=== PATIENT | male | born 1995 | race Caucasian/White ===

== ENCOUNTER 2017-03-31 15:06 | Emergency (ER) | payer OTHER ==
[2017-03-31 15:33] VITALS: BP 136/82
--- NOTE | 2017-03-31 15:48 | UC ---
UC General HPI - HPI Summary HPI Summary: pt is c/o headache, sore throat, bodyaches and chills since this past . no cough, sob, n/v/d, dysuria - History of Current Complaint Chief Complaint: UCGeneralIllness Stated Complaint: HEADACHE SORE THROAT ACHY Time Seen by Provider: 03/31/17 15:29 Hx Obtained From: Patient Onset/Duration: Gradual Onset Timing: Constant Onset Severity: Moderate Pain Intensity: 6 Associated Signs & Symptoms: Positive: Fever, Headache - Allergy/Home Medications Allergies/Adverse Reactions: Allergies Allergy/AdvReac Type Severity Reaction Status Date / Time No Known Allergies Allergy Verified 03/31/17 15:33 PMH/Surg Hx/FS Hx/Imm Hx Previously Healthy: Yes - Surgical History Surgical History: None - Family History Known Family History: Positive: None - Social History Alcohol Use: None Substance Use Type: None Smoking Status (MU): Never Smoked Tobacco Review of Systems Constitutional: Fever, Chills Skin: Other - pink spot on L shoulder area Eyes: Negative ENT: Sore Throat Respiratory: Negative Cardiovascular: Negative Gastrointestinal: Negative Genitourinary: Negative Motor: Negative Musculoskeletal: Myalgia Neurological: Headache Is Patient Immunocompromised?: No All Other Systems Reviewed And Are Negative: Yes Physical Exam Triage Information Reviewed: Yes Appearance: Well-Appearing Vital Signs: Initial Vital Signs Temp 99.1 F 03/31/17 15:29 Pulse 68 03/31/17 15:29 Resp 16 03/31/17 15:29 BP 136/82 03/31/17 15:29 Pulse Ox 100 03/31/17 15:29 Vital Signs Reviewed: Yes Eye Exam: Normal ENT: Positive: Pharyngeal erythema, TMs normal, Uvula midline. Negative: Nasal congestion, Nasal drainage, Tonsillar swelling, Tonsillar exudate, Trismus, Muffled voice, Hoarse voice Neck: Positive: Supple, Nontender, Enlarged Nodes @ - peritonsil Respiratory: Positive: Chest non-tender, Lungs clear, Normal breath sounds Cardiovascular: Positive: RRR, No Murmur, Pulses Normal Abdomen Description: Positive: Nontender, No Organomegaly, Soft Bowel Sounds: Positive: Present Musculoskeletal: Positive: ROM Intact Neurological Exam: Normal Skin Exam: Normal, Other - quarter size isolated pink spot over L clavicle area with no scale, blistering and not petechial plus does bk, rest of skin unremarkable. Diagnostics - Laboratory Diagnostic Studies Completed/Ordered: neg rapid strep but + flu. will tx tamiflu Course/Dx - Course Course Of Treatment: single spot(rash) non specific thus will observe. no c/w bacterial infection, not overt fungal rash at this time. neg strep but + flu - Differential Dx - Multi-Symptom Provider Diagnoses: + Influenza Discharge - Discharge Plan Condition: Stable Disposition: HOME Prescriptions: Oseltamivir CAP* [Tamiflu CAP*] 75 mg PO BID 5 Days #10 cap Patient Education Materials: Influenza (ED) Referrals: BENEDICTO Castellanos [[facility] AP[facility], OTHER] - 5 Days
== END 2017-03-31 16:28 | disposition home or self-care (01) ==
LOC: UCCORT 15:06
DX: J10.1 Influenza due to other identified influenza virus with other respiratory manifestations (principal)
CPT/HCPCS: 87502; 87651; 99202; G0463

== ENCOUNTER 2018-01-09 08:04 | Emergency (ER) | payer OTHER ==
[2018-01-09 08:21] VITALS: BP 150/71
--- NOTE | 2018-01-09 08:23 | UC ---
FLU HPI - HPI Summary HPI Summary: Patient presents to urgent care with 8 days of body aches, tactile fevers, chills. Patient with head congestion, sore throat. Patient states that has gotten worse over the last 24 hours. Patient does have sinus congestion and postnasal drip. No ear pain. Patient's taken NyQuil and Tylenol with little improvement. no analgesia today. no rash. + sick contacts Pt's medications reviewed this visit - History of Current Complaint Chief Complaint: UCRespiratory Stated Complaint: FLU LIKE SYMPTOMS Time Seen by Provider: 01/09/18 08:22 Hx Obtained From: Patient Pain Intensity: 9 - Allergy/Home Medications Allergies/Adverse Reactions: Allergies Allergy/AdvReac Type Severity Reaction Status Date / Time No Known Allergies Allergy Verified 01/09/18 08:13 Home Medications: Home Medications Acetaminophen TAB* [Tylenol TAB*] 650 mg PO Q4H PRN 01/09/18 [History Confirmed 01/09/18] D-Methorphan/PE/Acetaminophen [Vicks Dayquil Cold & Flu] 2 cap PO PRN 01/09/18 [ History] PMH/Surg Hx/FS Hx/Imm Hx Previously Healthy: Yes - Surgical History Surgical History: None - Family History Known Family History: Positive: None, Non-Contributory - Social History Occupation: Employed Part-time Lives: With Family Alcohol Use: Occasionally Substance Use Type: None Smoking Status (MU): Never Smoked Tobacco Review of Systems All Other Systems Reviewed And Are Negative: Yes Constitutional: Positive: Fever, Fatigue ENT: Positive: Sore Throat, Nasal Discharge, Sinus Congestion Genitourinary: Positive: Negative Physical Exam - Summary Physical Exam Summary: Vital Signs Reviewed: Yes A+Ox3, no distress Eyes: Conjunctiva Clear, CARROLL. EOM intact and full ENT: Hearing grossly normal TM x 2 clear, turbinates inflammdy and boggy, + thick PND, mmoist, uvula midline, no exudate, no erythema Neck: Positive: Supple Respiratory: Positive: No respiratory distress, No accessory muscle use + CTA throughout no w/r Cardiovascular: RRR nl s1, s2 no m/r CBT <2 sec abd soft + BS nt/nd no guarding, no distension Musculoskeletal Exam: JACKSON x 4 without difficulty Strength Intact, ROM Intact Neurological: Positive: Alert, + sensation throughout Psychological: Positive: Normal Response To Family Skin: Positive: no rash, no ecchymosis Triage Information Reviewed: Yes Vital Signs: Initial Vital Signs Temp 98.7 F 01/09/18 08:16 Pulse 82 01/09/18 08:16 Resp 16 01/09/18 08:16 BP 150/71 01/09/18 08:16 Pulse Ox 97 01/09/18 08:16 Flu Course/Dx - Course Course Of Treatment: Patient presents to urgent care with 8 days of progressive body aches fevers congestion sore throat. On exam vital signs are stable. Patient with thick postnasal drip and sinus congestion. Patient with mild maxillary sinus right worse than left. Patient's flu is negative. We'll start patient on amoxicillin. Recommended decongestant. Secretion precaution. Hydrate patient. Motrin/Tylenol. Return precaution. Patient comfortable and in agreement with plan. pt's BP slightly elevated - recommend f.u with pcp. caution with decongestant - Differential Dx/Diagnosis Provider Diagnoses: rhinosinusitis Discharge - Sign-Out/Discharge Documenting (check all that apply): Patient Departure All imaging exams completed and their final reports reviewed: No Studies - Discharge Plan Condition: Stable Disposition: HOME Prescriptions: Amoxicillin PO (*) [Amoxicillin 500 MG CAP*] 500 mg PO Q12H #14 cap Patient Education Materials: Rhinosinusitis (ED) Referrals: [facility] [Outside] No Primary Care Phys,NOPCP [Primary Care Provider] - Additional Instructions: - Stay well hydrated. Drink plenty of non-alcoholic, non-caffinated beverages. - Alternate ibuprofen (Advil, Motrin) 600mg and Tylenol 1000mg every 3 hours for pain or fever. Take with food. Do NOT take for more than 4-5 days. - These infections are spread by secretions - do NOT share eating or drinking utensils - clean items you share with other people such as cell phones, computer mouse, TV remote, computer tablets,etc. Once you have been on antibiotics for 2 days, change your toothbrush and your pillowcase. - get plenty of restful sleep - humidify the air in the room where you sleep - boil water, run a hot steam shower, vaporizer, cups of water by heat register - okay to take over the counter decongestant and cough medication (Claritin-D, Zyrtec-D, Bree-D, Kev) - contact your doctor or return with questions or concerns - Billing Disposition and Condition Condition: STABLE Disposition: Home
== END 2018-01-09 08:41 | disposition home or self-care (01) ==
LOC: UCCORT 08:04
DX: J32.9 Chronic sinusitis, unspecified (principal)
CPT/HCPCS: 99212; G0463